=== PATIENT | female | born 1965 | race Caucasian/White ===

== ENCOUNTER 2016-10-25 22:07 | Emergency (ER) | payer OTHER ==
[~2016-10-25] VITALS: Ht 165.1 cm; Wt 148.0 kg
[2016-10-25 22:28] VITALS: BP 112/70; PULSE 98; RESP 18; TEMP 98.7; O2SAT 96
[2016-10-25] MEDS ORDERED: PRED10PA2 PO (23:45)
[2016-10-25] MEDS ORDERED: predniSONE 20 MG TAB PO ONE (23:45)
[2016-10-25] MEDS ORDERED: ULTR50TA5 PO (23:45)
[2016-10-25] MEDS ORDERED: ACETAMINOPHEN/HYDROcodone 325 MG/5 MG TAB PO ONE (23:45)
--- NOTE | 2016-10-25 23:45 | PD ---
HPI . Left hip pain Chief Complaint: Pain: Acute or Chronic Time Seen by Provider: 23:32 Travel History International Travel<30 days: No Contact w/Intl Traveler<30days: No Traveled to known affect area: No History of Present Illness HPI Patient presents with acute onset of left hip pain. This started today. It hurts to move it. She states that she has had previous bursitis in her left hip and that this feels the same. Patient reports problems. She is under the care of an orthopedist for same. She states that she picked up a medication from the pharmacy which was prescribed for her knee pain this afternoon. She has taken one dose. It did not help her pain. PFSH Past Medical History Asthma: Yes Anxiety: Yes Depression: Yes Cancer: No Cardiovascular Problems: No Diabetes: No Diminished Hearing: No Hepatitis: No Hiatal Hernia: No ?: Not : 2 Para: 2 Dilation and Curettage (D&C): Yes Tubal Ligation: Yes Past Surgical History Hysterectomy: Yes (TUBAL) Oral Surgery: Yes (T&A AGE 7) Pacemaker: No Tonsillectomy: Yes Other Surgery: Yes (ELIDA WRIST SURGERY) Social History Alcohol Use: No Tobacco Use: No Substance Use: No Allergies-Medications (Allergen,Severity, Reaction): Coded Allergies: Chocolate (Verified Allergy, Severe, Anaphylaxis, 10/25/16) Reported Meds & Prescriptions Reported Meds & Active Scripts Active Review of Systems Except as stated in HPI: all other systems reviewed are Neg General / Constitutional: No: Fever, Chills Musculoskeletal: Positive: Arthralgias, Limited ROM Physical Exam Narrative GENERAL: Awake and alert and in no acute distress. SKIN: Warm and dry. CARDIOVASCULAR: Regular rate and rhythm. RESPIRATORY: No accessory muscle use. MUSCULOSKELETAL: No obvious deformities. No edema. Pain with log rolling of the left hip. Pain to palpation of the left hip in the groin and over the greater trochanter. NEUROLOGICAL: Awake and alert. No obvious cranial nerve deficits. Motor grossly within normal limits. Normal speech. PSYCHIATRIC: Appropriate mood and affect; insight and judgment normal. Data Data Last Documented VS Vital Signs Date Time Temp Pulse Resp B/P Pulse Ox O2 Delivery O2 Flow Rate FiO2 10/25/16 22:28 98.7 98 18 112/70 96 Orders Acetamin-Hydrocod 325-5 Mg (Wheeler 5-325 (10/25/16 23:45) Prednisone (Deltasone) (10/25/16 23:45) MDM Medical Decision Making Medical Screen Exam Complete: Yes Emergency Medical Condition: Yes Differential Diagnosis Differential diagnosis of joint pain includes but is not limited to arthritis, gout, sprain/strain, fracture, dislocation Narrative Course Patient presents with left hip pain. It is probably arthritis. I will treat her with prednisone. I will give her a dose of Wheeler here. Diagnosis Primary Impression: Left hip pain Patient Instructions: General Instructions, Hip Pain (ED), Narcotic given in the ED Med/Other Pt SpecificInfo: Prescription(s) given Scripts Tramadol (Ultram)50 Mg Tab50 Mg PO Q4H PRN (PAIN) #12 TAB Ref 0 Prov:Chetna Harrison MD 10/25/16 Prednisone (48) 10 mg tab Dose Pack 10 Mg Dspk10 Mg PO DIRECTED #1 DSPK Ref 0 Prov:Chetna Harrison MD 10/25/16 Disposition: 01 DISCHARGE HOME Condition: Stable Chetna Harrison MD Oct 25, 2016 23:45
[2016-10-25] MEDS ORDERED: DICL75TA PO (23:53)
== END 2016-10-26 00:27 | disposition home or self-care (01) ==
LOC: PHED 22:07 → PHEFT 10-26 00:27
DX: M25.552 Pain in left hip (principal); J45.909 Unspecified asthma, uncomplicated; F41.9 Anxiety disorder, unspecified; F32.9 Major depressive disorder, single episode, unspecified
CPT/HCPCS: 99283; J7512